=== PATIENT | female | born 1955 | race Caucasian/White ===

== ENCOUNTER 2017-10-24 13:15 | Emergency (ER) | payer OTHER, MEDICAID ==
[~2017-10-24] VITALS: Ht 157.5 cm; Wt 64.0 kg
[2017-10-24 13:19] VITALS: Ht 157.5 cm; Wt 64.0 kg
[2017-10-24 14:22] VITALS: BP 175/86
== END 2017-10-24 14:22 | disposition home or self-care (01) ==
LOC: ED 13:15
DX: R05 Cough (principal); T46.4X5A Adverse effect of angiotensin-converting-enzyme inhibitors, initial encounter; Y92.89 Other specified places as the place of occurrence of the external cause; I10 Essential (primary) hypertension
CPT/HCPCS: Q0092